=== PATIENT | female | born 1975 | race Caucasian/White ===

== ENCOUNTER 2020-12-05 11:09 | Emergency (ER) | payer OTHER, BC, SELFPAY ==
--- NOTE | ~2020-12-05 | CT_ITS ---
EXAMINATION: CT abdomen pelvis w con EXAM DATE: 12/05/2020 12:36 INDICATION: Left lower quadrant pain. Diarrhea. TECHNIQUE: Spiral CT of the abdomen and pelvis was performed following intravenous injection of 100 m L Omnipaque 350. Axial, coronal and sagittal images of the abdomen and pelvis were reviewed. The do se-length product (DLP) for this examination was 1036.74 mGy-cm. The exposure was tailored according to patient size (auto mA exposure control), and iterative reconstruction (ASIR) was used as addition al dose reduction technique. Comparison is made to prior examination from 06/16/2015. FINDINGS: There is hepatic steatosis without suspicious focal lesion identified. Spleen, adrenal glan ds, pancreas are unremarkable. There are cholecystectomy clips. There is a 5 x 7 mm stone in the pr oximal aspect of the left ureter. Mild left hydroureteronephrosis. Enhancing left ureteral urothelium . Several small left renal cyst. Probable hysterectomy. Several ovarian cyst probably physiologic. T he bladder is unremarkable. There is no retroperitoneal or pelvic lymphadenopathy. There is mild s cattered arteriosclerotic disease. There are no findings to suggest appendicitis. The stomach and small bowel are unremarkable. There is expected amount of colonic stool. No free intraperitoneal gas. The heart is normal in size. T here are no pericardial or pleural effusions. The lung bases are unremarkable. There are no osteobl astic or osteolytic lesions identified. IMPRESSION: 1. Left proximal ureteral 5 x 7 mm stone, mild obstructive nephropathy. 2. Hepatic steatosis. Reviewed, dictated and finalized at location B.
--- NOTE | ~2020-12-05 | XR_ITS ---
EXAMINATION: XR abdomen/kub 1V EXAM DATE: 12/05/2020 13:15 INDICATION: left ureteral stone . TECHNIQUE: Frontal projection(s) of the abdomen for interpretation. Correlation is made to x-ray same date. FINDINGS: Location of the left proximal ureteral stone has been indicated overlying the left 4th avendano sverse process. It is difficult to specifically visualized the stone due to the standing column of co ntrast above. There is mild to moderate left-sided hydroureteronephrosis. Trickle of contrast is gato ng it beyond the stone. Cholecystectomy clips. Nonobstructive bowel gas pattern. Lung bases are unrem arkable. IMPRESSION: 1. Left proximal ureteral stone, mild to moderate obstructive nephropathy. Reviewed, dictated and finalized at location B.
[2020-12-05 11:15] VITALS: BP 146/94; PULSE 98; RESP 16; TEMP 36.1; O2SAT 99
[2020-12-05 11:27] LABS: Hemoglobin 16.3 g/dL (12.0-15.0); Mean Corpuscular Hemoglobin 30.5 pg (26-34); Mean Corpuscular Volume 89.7 fl (80-100); Mean Platelet Volume 10.4 fl (7.4-10.4); Platelet Count Result 434 k/mm3 (150-375); Red Blood Count 5.35 M/mm3 (4.2-5.4); Red Cell Distribution Width 12.4 % (11.5-14.5); White Blood Count 11.6 K/mm3 (4.5-10.0)
[2020-12-05 11:40] LABS: Alanine Aminotransferase 49 U/L (4-35); Albumin Level 4.7 g/dL (3.5-5.1); Alkaline Phosphatase 45 U/L (38-126); Anion Gap 14 mmol/L (8-16); Aspartate Amino Transferase 51 U/L (14-36); Bilirubin,Total 0.6 mg/dL (0.2-1.3); Blood Urea Nitrogen 7 mg/dL (7-17); Calcium 10.1 mg/dL (8.4-10.2); Carbon Dioxide 22 mmol/L (22-30); Chloride 104 mmol/L (98-107); Estimated CRCL calculation 113 ml/min; Estimated Glomerular Filt Rate > 60; Glucose 121 mg/dL (65-110); Lipase 158 U/L (23-300); Potassium 3.7 mmol/L (3.4-5.0); Sodium 140 mmol/L (137-145)
[2020-12-05 11:44] LABS: Add Urine Microscopic? YES; Appearance Urine Cloudy (Clear); Bacteria Urine Trace /hpf; Bilirubin Urine Negative (Negative); Blood Urine Negative (Negative); Budding Yeast Urine Present /hpf; Color Urine Yellow (Yellow); Glucose Urine UA Negative (Negative); Ketones Urine Negative (Negative); Leukocyte Esterase Ur Negative LEU/UL (Negative); Mucus Urine Rare /lpf; Nitrate Urine Negative (Negative); Protein Urine 1+ mg/dL (Negative); Specific Grav Ur 1.018 (1.001-1.035); Squamous Epithelial Cell Urine Many /hpf (Few)
[2020-12-05 12:05] VITALS: BP 159/100; PULSE 93; O2SAT 96
[2020-12-05] MEDS: fentaNYL CITRATE INJ (*CRX) 100 MCG/2 ML VIAL 50 MCG IV PUSH ×2 (12:14→15:45)
[2020-12-05 12:45] LABS: Atypical Lymphocytes Present; Eosinophils Absolute Manual 0.11 K/mm3 (0.02-0.5); Eosinophils Percent Manual 1 % (0-4); Lymphocytes Absolute Manual 5.45 K/mm3 (1.1-4.5); Monocytes Absolute Manual 0.34 K/mm3 (0.1-0.90); Monocytes Percent Manual 3 % (3-9); Neutrophils Percent Manual 49 % (46-73); Platelet Estimate Adequate (Adequate); Total Cells Counted 100
--- NOTE | 2020-12-05 13:42 | ED.GENADULT ---
HPI - General Adult General Chief complaint: Abdominal Pain Stated complaint: Abd Pain Time Seen by Provider: 12/05/20 11:55 History of Present Illness HPI narrative: Patient is a 45-year-old female who presents to the ER from her PCPs office with left-sided abdominal pain. Sudden onset last night. Reports 10 out of 10 pain. Associated with some nausea but also frequent diarrhea. She has no fevers or chills or sweats. Denies urinary frequency urgency or dysuria. No hematuria. Has not had similar pain in the past. Cannot find any alleviating factors. Related Data Home Medications Medication Instructions Recorded Confirmed hydrocodone 10 mg-acetaminophen 1 tablet PO BID-TID tablet 02/16/20 12/05/20 325 mg tablet amitriptyline 10 mg tablet 10 mg PO QHS 08/10/20 12/05/20 gabapentin 600 mg tablet 1,200 mg PO TID tablet 08/10/20 12/05/20 golimumab 12.5 mg/mL intravenous 50 mg IV .[id number] ml 08/10/20 12/05/20 solution lisinopril 20 1 tablet PO BID tablet 08/10/20 12/05/20 mg-hydrochlorothiazide 25 mg tablet Allergies Allergy/AdvReac Type Severity Reaction Status Date / Time Sulfa (Sulfonamide Allergy Mild Unknown Verified 12/05/20 12:13 Antibiotics) sulfamethoxazole Allergy Mild Unknown Verified 12/05/20 12:13 hydromorphone Allergy Unknown Unknown Verified 12/05/20 12:13 milnacipran Allergy Unknown Nausea And Verified 12/05/20 12:13 Vomiting sulfamethizole Allergy Unknown Unknown Verified 12/05/20 12:13 trimethoprim Allergy Unknown Unknown Verified 12/05/20 12:13 Review of Systems Review of Systems: All systems reviewed & are unremarkable except as noted in HPI and below Constitutional: Constitutional: Denies chills, Denies fever(s) and Denies weakness ENT: Denies nasal congestion and Denies sore throat Cardiovascular: Cardiovascular: Denies chest pain, Denies rapid heart rate and Denies radiating jaw, neck or arm pain Respiratory: Respiratory: Denies cough and Denies dyspnea Gastrointestinal: Gastrointestinal: Reports abdominal pain, Reports diarrhea, Reports nausea and Denies vomiting Genitourinary: Genitourinary: Denies hematuria, Denies nocturia, Denies dysuria and Denies flank pain FORMERLY [facility] Past Medical History Medical History Anxiety Depression Dyslipidemia Essential (primary) hypertension Fibromyalgia GERD without esophagitis Insomnia Migraines Psoriatic arthritis RLS (restless legs syndrome) Surgical History Surgical History H/O tubal ligation (~2000) H/O: hysterectomy (~2009) History of appendectomy (~1988) Hx laparoscopic cholecystectomy (~2011) Previous section (~2000) Family History Family History Father Diabetes mellitus Hypertension Family history of psoriasis Cerebrovascular accident Other Carcinoma of colon Social History Social History Smoking packs per day: 0.5 Smoking cigarettes per day: 10.0 Years smoked: 30 Smoking pack-years: 15.00 Smoking status: Current every day smoker Tobacco type: cigarettes Alcohol intake: never Substance use: never Substance use type: does not use Additional living arrangements comments: Gender identity (if verbalized by the patient): Female Sexual Orientation (if Verbalized by the Patient): Straight or Heterosexual Exam Narrative: GENERAL: Well-appearing, well-nourished, and in no acute distress. HEAD: Normocephalic, atraumatic. EYES: PERRL and EOMI. CHEST: Clear to auscultation. No respiratory distress. HEART: Regular rate and rhythm. Normal peripheral pulses. ABDOMEN: Soft, nontender, nondistended. EXTREMITIES: Normal range of motion. No edema. SKIN: Warm, dry, no rash. NEURO: Alert and oriented x3. PSYCH: Normal mood and affect. Course Cour
[2020-12-05 15:51] VITALS: BP 135/83; PULSE 83; RESP 18; O2SAT 99
== END 2020-12-05 16:13 | disposition home or self-care (01) ==
PROVIDERS: Emergency Provider Emergency Medicine; PCP Family Medicine
DX: N20.0 Calculus of kidney (principal); F41.9 Anxiety disorder, unspecified; F32.9 Major depressive disorder, single episode, unspecified; E78.5 Hyperlipidemia, unspecified; I10 Essential (primary) hypertension; M79.7 Fibromyalgia; G47.00 Insomnia, unspecified; G25.81 Restless legs syndrome; F17.210 Nicotine dependence, cigarettes, uncomplicated; Z87.19 Personal history of other diseases of the digestive system; Z86.69 Personal history of other diseases of the nervous system and sense organs
CPT/HCPCS: 36415; 74018; 74177; 80053; 81001; 81025; 83690; 85025; 87086; 87088; 96374; 96376; 99284; J3010; Q9967

== ENCOUNTER 2020-12-06 10:26 | Day surgery (SDC) | payer OTHER, BC, SELFPAY ==
[2020-12-06] VITALS (9 sets, daily range): BP systolic 130–146; BP diastolic 68–97; PULSE 70–112; RESP 15–20; TEMP 36.3–36.7; O2SAT 96–100; BMI 32.5
--- NOTE | ~2020-12-06 | XR_ITS ---
EXAMINATION: XR retrograde pyelo w/stent LT DATE: 12/06/2020 16:43 INDICATION: Left internal ureteral stent placement TECHNIQUE: Fluoroscopic images from a left internal ureteral stent placement are submitted for review . 38 seconds of fluoroscopy time. 12 fluoroscopic images FINDINGS: There is a left double-J internal ureteral stent projecting in expected position, with proximal Smiley loop at the level of the renal pelvis and distal loop in the pelvis within the bladder lumen. IMPRESSION: 1. Left internal ureteral stent placement. Please refer to real-time procedural findings for detail s. Reviewed, dictated and finalized at location A. IMPRESSION: 1. Left internal ureteral stent placement. Please refer to real-time procedur al findings for details.
--- NOTE | ~2020-12-06 | XR_ITS ---
EXAMINATION: XR abdomen/kub 1V EXAM DATE: 12/06/2020 13:43 INDICATION: Kidney stone follow-up. TECHNIQUE: Frontal projection of the upper abdomen, frontal projection lower abdomen/pelvis for inter pretation. Comparison is made to prior examination from 12/05/2020. FINDINGS: Left proximal ureteral 7 mm stone identified, indicated just lateral to the left L4 transve rse process, position unchanged. There is a nonobstructive bowel gas pattern. Cholecystectomy clips. Bones are unremarkable. IMPRESSION: Left proximal ureteral stone identified, indicated. Reviewed, dictated and finalized at location B.
--- NOTE | 2020-12-06 12:54 | ED.FEMALEGU ---
HPI - Female Genitourinary General Chief complaint: Urogenital-Female Stated complaint: Dr Nails office sent to ER for consult Time Seen by Provider: 12/06/20 12:54 Source: patient Mode of arrival: ambulatory Limitations: no limitations History of Present Illness HPI Narrative: 45-year-old female Seen yesterday with left flank pain and a 7 mm stone Returns today with continued pain Urology aware and plan is to take her to the OR for stone extraction and or stenting Related Data Home Medications Medication Instructions Recorded Confirmed hydrocodone 10 mg-acetaminophen 1 tablet PO BID-TID tablet 02/16/20 12/05/20 325 mg tablet amitriptyline 10 mg tablet 10 mg PO QHS 08/10/20 12/05/20 gabapentin 600 mg tablet 1,200 mg PO TID tablet 08/10/20 12/05/20 golimumab 12.5 mg/mL intravenous 50 mg IV .[id number] ml 08/10/20 12/05/20 solution lisinopril 20 1 tablet PO BID tablet 08/10/20 12/05/20 mg-hydrochlorothiazide 25 mg tablet Allergies Allergy/AdvReac Type Severity Reaction Status Date / Time Sulfa (Sulfonamide Allergy Mild Unknown Verified 12/05/20 12:13 Antibiotics) sulfamethoxazole Allergy Mild Unknown Verified 12/05/20 12:13 hydromorphone Allergy Unknown Unknown Verified 12/05/20 12:13 milnacipran Allergy Unknown Nausea And Verified 12/05/20 12:13 Vomiting sulfamethizole Allergy Unknown Unknown Verified 12/05/20 12:13 trimethoprim Allergy Unknown Unknown Verified 12/05/20 12:13 Review of Systems Review of Systems: All systems reviewed & are unremarkable except as noted in HPI and below Constitutional: Constitutional: Reports no additional constitutional complaints, Denies chills, Denies fever(s) and Denies headache(s) ENT: Denies headache(s) Cardiovascular: Cardiovascular: Denies dyspnea Respiratory: Respiratory: Denies cough and Denies dyspnea Gastrointestinal: Gastrointestinal: Reports abdominal pain, Denies diarrhea, Reports nausea and Denies vomiting Genitourinary: Genitourinary: Denies urinary frequency, Denies dysuria and Reports flank pain Musculoskeletal: Musculoskeletal: Denies deformity, Denies arthralgias, Denies joint swelling and Denies numbness Integumentary/Breasts: Skin/Breast: Denies rash and Denies wounds COUNT INCLUDES THE [facility] Past Medical History Medical History Anxiety Depression Dyslipidemia Essential (primary) hypertension Fibromyalgia GERD without esophagitis Insomnia Migraines Psoriatic arthritis RLS (restless legs syndrome) Surgical History Surgical History H/O tubal ligation (~2000) H/O: hysterectomy (~2009) History of appendectomy (~1988) Hx laparoscopic cholecystectomy (~2011) Previous section (~2000) Family History Family History Father Diabetes mellitus Hypertension Family history of psoriasis Cerebrovascular accident Other Carcinoma of colon Social History Social History Smoking packs per day: 0.5 Smoking cigarettes per day: 10.0 Years smoked: 30 Smoking pack-years: 15.00 Smoking status: Current every day smoker Tobacco type: cigarettes Alcohol intake: never Substance use: never Substance use type: does not use Additional living arrangements comments: Gender identity (if verbalized by the patient): Female Sexual Orientation (if Verbalized by the Patient): Straight or Heterosexual Exam Const: General: cooperative, no acute distress and alert Orientation/consciousness: patient oriented x3 (alert) HENMT: Head: normal to inspection, normocephalic and atraumatic Ears: external ears normal General nose exam: no epistaxis Eyes: Conjunctivae: conjunctivae normal EOM: EOMs intact bilaterally Neck: Neck: normal visual inspection, supple and no JVD Resp: Effort & Inspect
[2020-12-06] MEDS: LACTATED RINGERS 1,000 ML 30 ML IV CONT (14:20)
--- NOTE | 2020-12-06 15:17 | WPDURCON ---
Assessment and Plan Assessment and plan (1) Ureterolithiasis: Code(s): N20.1 - Calculus of ureter Status: Acute Assessment and Plan: Plan to go to the OR with Dr. Nails today. Keep NPO. Obtain Consent: Cystoscopy, left ureteroscopy with possible stone extraction, left stent placement, left retrograde pyelogram, possible holmium laser. Urology Consult Note HPI Date Seen: 12/06/20 Requesting Physician: Enrique Nails MD Primary Care Provider: Leticia Valenzuela MD Consult Narrative Narrative: Christelle Schmidt is a 45 year old female who presented to the ER yesterday initially and was found to have a 5x7mm stone in the left distal ureter on CT that is visible on KUB. She was discharged home with pain medications and tamsulosin to f/u in the office today, however she called to make an appt this morning and was having worsening severe pain in the Left Flank and abdomen. We advised her to go to the ER to be evaluated. She denies nausea, vomiting, dysuria, hematuria or frequency of urination. Repeat KUB today shows minimal if any change to the position of her stone in the proximal left ureter. Her WBC was 11.6 yesterday, labs are pending today. Another UA was run as well today and her culture from yesterday is still pending. Review of Systems Cardiovascular: Cardiovascular: Denies chest pain Respiratory: Respiratory: Reports no additional respiratory complaints Gastrointestinal: Gastrointestinal: Denies abdominal pain, Denies nausea and Denies vomiting Genitourinary: Genitourinary: Denies hematuria, Denies dysuria, Reports flank pain (Left) and Denies urinary urgency FOR[facility]LY [facility] Past Medical History Medical History Anxiety Depression Dyslipidemia Essential (primary) hypertension Fibromyalgia GERD without esophagitis Insomnia Migraines Psoriatic arthritis RLS (restless legs syndrome) Surgical History Surgical History H/O tubal ligation (~2000) H/O: hysterectomy (~2009) History of appendectomy (~1988) Hx laparoscopic cholecystectomy (~2011) Previous section (~2000) Family History Family History Father Diabetes mellitus Hypertension Family history of psoriasis Cerebrovascular accident Other Carcinoma of colon Social History Social History Smoking packs per day: 0.5 Smoking cigarettes per day: 10.0 Years smoked: 30 Smoking pack-years: 15.00 Smoking status: Current every day smoker Tobacco type: cigarettes Alcohol intake: never Substance use: never Substance use type: does not use Additional living arrangements comments: Gender identity (if verbalized by the patient): Female Sexual Orientation (if Verbalized by the Patient): Straight or Heterosexual Meds Home Medications and Allergies Home Medications Medication Instructions Recorded Confirmed Type hydrocodone 10 mg-acetaminophen 1 tablet PO BID-TID tablet 02/16/20 12/05/20 History 325 mg tablet amitriptyline 10 mg tablet 10 mg PO QHS 08/10/20 12/05/20 History gabapentin 600 mg tablet 1,200 mg PO TID tablet 08/10/20 12/05/20 History golimumab 12.5 mg/mL intravenous 50 mg IV .[id number] ml 08/10/20 12/05/20 History solution lisinopril 20 1 tablet PO BID tablet 08/10/20 12/05/20 History mg-hydrochlorothiazide 25 mg tablet ramelteon 8 mg tablet 8 mg PO QHS PRN #90 tablet 08/10/20 12/05/20 Rx ropinirole 1 mg tablet 1 mg PO DAILY #90 tablet 09/04/20 12/05/20 Rx fenofibrate micronized 134 mg 134 mg PO DAILY #90 cap 10/11/20 12/05/20 Rx capsule omeprazole 40 mg capsule,delayed 40 mg PO DAILY #90 cap 10/11/20 12/05/20 Rx release hydrocodone-acetaminophen 1 tablet PO Q6H PRN #15 tablet 12/05/20 Rx ondansetron 4 mg PO Q6H PRN #10 tablet
--- NOTE | 2020-12-06 15:29 | WPDANESEPPF ---
Anes - Initial Pre Proc Eval Procedure: Operation Date: 12/06/20 16:30 Proposed Procedures p Cystoscopy, Left Retrograde Pyelogram, Possible Left Stent Placement, Possible Left Stone Extraction, - Enrique Nails MD s Possible Holmium Laser Procedure - Enrique Nails MD Date/Time: 12/06/20 15:29 Surgeon: Enrique Nails MD Pre Op Diagnosis: Dr Nails office sent to ER for consult Patient Data Age: 45 Gender: F Height: 1.65 m Weight: 88.9 kg Last Vital Signs Temp 36.7 C 12/06/20 14:04 Pulse 103 H 12/06/20 14:04 Resp 20 12/06/20 14:04 BP 143/92 H 12/06/20 14:04 Pulse Ox 96 12/06/20 14:04 Allergies Allergy/AdvReac Type Severity Reaction Status Date / Time Sulfa (Sulfonamide Allergy Mild Hives Verified 12/06/20 15:08 Antibiotics) sulfamethoxazole Allergy Mild Hives Verified 12/06/20 15:08 hydromorphone Allergy Unknown Hives Verified 12/06/20 15:08 milnacipran Allergy Unknown Nausea And Verified 12/05/20 12:13 Vomiting sulfamethizole Allergy Unknown Unknown Verified 12/05/20 12:13 trimethoprim Allergy Unknown Unknown Verified 12/05/20 12:13 Home Medications Medication Instructions Recorded Confirmed Type hydrocodone 10 mg-acetaminophen 1 tablet PO BID-TID tablet 02/16/20 12/06/20 History 325 mg tablet amitriptyline 10 mg tablet 10 mg PO QHS 08/10/20 12/06/20 History gabapentin 600 mg tablet 1,200 mg PO HS tablet 08/10/20 12/06/20 History golimumab 12.5 mg/mL intravenous 50 mg IV .[id number] ml 08/10/20 12/06/20 History solution lisinopril 20 1 tablet PO BID tablet 08/10/20 12/06/20 History mg-hydrochlorothiazide 25 mg tablet ramelteon 8 mg tablet 8 mg PO QHS PRN #90 tablet 08/10/20 12/06/20 Rx ropinirole 1 mg tablet 1 mg PO DAILY #90 tablet 09/04/20 12/06/20 Rx fenofibrate micronized 134 mg 134 mg PO DAILY #90 cap 10/11/20 12/06/20 Rx capsule omeprazole 40 mg capsule,delayed 40 mg PO DAILY #90 cap 10/11/20 12/06/20 Rx release hydrocodone-acetaminophen 1 tablet PO Q6H PRN #15 tablet 12/05/20 12/06/20 Rx ondansetron 4 mg PO Q6H PRN #10 tablet 12/05/20 12/06/20 Rx tamsulosin 0.4 mg PO DAILY #7 cap 12/05/20 12/06/20 Rx gabapentin 600 mg PO DAILY 12/06/20 12/06/20 History lamotrigine 100 mg PO DAILY 12/06/20 12/06/20 History lamotrigine 200 mg PO HS 12/06/20 12/06/20 History xmdcgozbvlxg-mzpb-ugapn acid 1 tablet PO DAILY 12/06/20 12/06/20 History [Centrum Women] venlafaxine 75 mg PO DAILY 12/06/20 12/06/20 History Patient hx anesthesia problems: none Family hx anesthesia problems: none PMFSH Past Medical History Medical History Anxiety Depression Dyslipidemia Essential (primary) hypertension Fibromyalgia GERD without esophagitis Insomnia Migraines Psoriatic arthritis RLS (restless legs syndrome) Surgical History Surgical History H/O tubal ligation (~2000) H/O: hysterectomy (~2009) History of appendectomy (~1988) Hx laparoscopic cholecystectomy (~2011) Previous section (~2000) Family History Family History Father Diabetes mellitus Hypertension Family history of psoriasis Cerebrovascular accident Other Carcinoma of colon Social History Social History Smoking packs per day: 0.5 Smoking cigarettes per day: 10.0 Years smoked: 30 Smoking pack-years: 15.00 Smoking status: Current every day smoker Tobacco type: cigarettes Alcohol intake: never Substance use: never Substance use type: does not use Additional living arrangements comments: Gender identity (if verbalized by the patient): Female Sexual Orientation (if Verbalized by the Patient): Straight or Heterosexual Anes - Eval Final PreProcedure Day of Procedure 12/06/20 15:29 Patient weight:
[2020-12-06] MEDS: fentaNYL CITRATE INJ (*CRX) 100 MCG/2 ML VIAL 50 MCG IV PUSH (15:30)
--- NOTE | 2020-12-06 15:42 | WPDHPUPDATE1 ---
History and Physical Update Update Date/Time: 12/06/20 15:42 History and Physical has been reviewed, including an updated exam of the patient. There are NO changes in the patient's condition. Risks, benefits, and alternatives have been discussed and questions answered. Patient agrees to proceed with procedure. Proceed with cysto, left retrograde, left stent , possible ureteroscopy with laser
--- NOTE | 2020-12-06 15:44 | SUR.PREOP ---
1530-DUE TO EMR UNRESOLVABLE ISSUE (DAVID, IT AWARE), UNABLE TO DOCUMENT GENERAL ADMISSION QUESTIONS/ASSESSMENT. PT SMOKES 1PPD X [address] AGARWAL AWARE OF SMOKING HISTORY.
[2020-12-06 15:55] LABS: Add Urine Microscopic? YES; Appearance Urine Clear (Clear); Bilirubin Urine Negative (Negative); Blood Urine 1+ (Negative); Calcium Oxalate Crystals Urine Present /hpf; Color Urine Yellow (Yellow); Glucose Urine UA Negative (Negative); Ketones Urine Negative (Negative); Leukocyte Esterase Ur Trace LEU/UL (Negative); Mucus Urine Few /lpf; Nitrate Urine Negative (Negative); Protein Urine 2+ mg/dL (Negative); RBC Urine 21-50 /hpf (0-2); Specific Grav Ur 1.023 (1.001-1.035); Squamous Epithelial Cell Urine Rare /hpf (Few); WBC Urine 16-20 /hpf
[2020-12-06] MEDS: ceFAZolin SODIUM 1 GM VIAL 2 GM IV PUSH (16:18)
--- NOTE | 2020-12-06 16:39 | W.PM.PROC2 ---
Procedure Note - Detailed Date of Procedure 12/06/20 Pre-op Diagnosis Dr Nails office sent to ER for consult Left ureteral calculus with hydronephrosis 7 mm calculus Post-op Diagnosis same Procedure Performed Cystoscopy, left retrograde pyelogram, left ureteroscopy with holmium laser, stone extraction, left ureteral stent placement 4.8 Marshallese contour Surgeon Enrique Nails MD Anesthesia general Description of Procedure Patient is taken the operative suite and correctly identified. Once anesthesia was obtained she was placed in dorsal lithotomy position and prepped and draped usual sterile fashion. Twenty-two Marshallese scope was inserted the bladder. Left ureteral orifice was cannulated with an angled Glidewire which we were able to manipulate past the stone. We then placed a ureteral access sheath. Mini flexible ureteral scope was then inserted. The stone was visualized but too large to retrieve 1 piece. Using a 273 micron fiber we fragmented the stone in multiple pieces. The largest ones were sent for analysis. Reinspection revealed no residual stones. Pyelogram was performed to confirm placement of the stent. 4.8 Marshallese contour stent was then placed with the proximal end coiled in the renal pelvis and the distal in the bladder. Bladder was drained. 2% viscous lidocaine was inserted urethra patient is taken recovery stable condition. She will follow up in a week's time for stent removal. Drains Yes Packing No Pathology yes Complications No immediate complications Condition stable Disposition PACU
--- NOTE | 2020-12-06 17:19 | SUR.PHASEI ---
1720- fentanyl 25mcg @ 1703/ fentanyl 25 mcg @ 1706 / fentanyl 25 mcg @ 1711 / fentanyl 25 mcg @ 1717
--- NOTE | 2020-12-06 17:33 | SUR.PHASEI ---
1733 - fentanyl 25 mcg given @ 1726 ivp
== END 2020-12-06 18:30 | disposition home or self-care (01) ==
LOC: ANHED 14:03 → ANHSURGERY 14:42
PROVIDERS: Emergency Provider Emergency Medicine; PCP Family Medicine; Visit Provider Urology
PROC: (CPT 52352; principal; 2020-12-06 16:30)
PROC: (CPT 52356; 2020-12-06 16:30)
DX: N13.2 Hydronephrosis with renal and ureteral calculous obstruction (principal); I10 Essential (primary) hypertension; E78.5 Hyperlipidemia, unspecified; K21.9 Gastro-esophageal reflux disease without esophagitis; F41.8 Other specified anxiety disorders; M79.7 Fibromyalgia; L40.50 Arthropathic psoriasis, unspecified; G25.81 Restless legs syndrome; F17.210 Nicotine dependence, cigarettes, uncomplicated; E66.9 Obesity, unspecified; Z68.32 Body mass index [BMI] 32.0-32.9, adult
CPT/HCPCS: 52356; 74018; 74420; 81001; 82365; 87086; 88300; 99285; A9270; C1758; C1769; C1894; C2617; J0690; J1200; J2250; J2405; J2704; J3010; J7120; Q9966

== ENCOUNTER 2023-08-06 12:12 | Outpatient (CLI) | payer OTHER, MEDICARE, SELFPAY ==
--- NOTE | ~2023-08-06 | CT_ITS ---
CT of the Abdomen and Pelvis: Indication: Hematuria Technique: 2.5 mm axial scans were obtained through the abdomen and pelvis prior to and following in travenous administration of 130 cc of Omnipaque 350. Dose reduction technique was used on this scan b y utilizing automated exposure control and iterative reconstruction technique. The dose-length produc t (DLP) was 2423.67 mGy-cm. COMPARISON: 12/05/2020 Findings: Scans through the lung bases are unremarkable. There is diffuse fatty infiltration of the liver. Cholecystectomy clips are present. The spleen, panc reas, adrenals and kidneys are within normal limits. No evidence of aortic aneurysm. No lymphadenop athy. No bowel obstruction or bowel wall thickening. There is no evidence to suggest acute appendicitis. Images through the pelvis were performed. Urinary bladder unremarkable. No pelvic mass seen. No ascit es. Impression: No etiology for hematuria identified. Diffuse hepatic steatosis. Reviewed, dictated and finalized at [facility]. Impression: No etiology for hematuria identified. Diffuse hepatic steatosis.
[2023-08-06 12:41] LABS: Estimated Glomerular Filt Rate > 60
== END 2023-08-06 12:13 | disposition home or self-care (01) ==
LOC: ANHIMG 12:12
PROVIDERS: PCP Family Medicine; Visit Provider Nurse Practitioner
DX: R31.0 Gross hematuria (principal); K76.0 Fatty (change of) liver, not elsewhere classified
CPT/HCPCS: 74178; Q9967

== ENCOUNTER 2024-01-20 15:29 | Outpatient (CLI) | payer OTHER, MEDICARE, SELFPAY ==
--- NOTE | ~2024-01-20 | XR_ITS ---
Left elbow Technique: AP, oblique, and lateral views were obtained. Clinical History: Pain Findings: No acute fracture or dislocation is seen. Osseous alignment is anatomic. Joint spaces are p reserved. There is no displacement of the fat pads, and no evidence of joint effusion. There is enthe sopathic change at the triceps tendon insertion. Impression: Mild enthesopathic change at the triceps tendon insertion. Reviewed, dictated and finalized at location M. Impression: Mild enthesopathic change at the triceps tendon insertion.
== END 2024-01-20 15:30 | disposition home or self-care (01) ==
LOC: MICIMG 15:29
PROVIDERS: PCP Physician Assistant; Visit Provider Physician Assistant
DX: M25.522 Pain in left elbow (principal)
CPT/HCPCS: 73080